=== PATIENT | female | born 1995 | race Caucasian/White ===

== ENCOUNTER 2024-06-07 13:20 | Emergency (ER) | payer MEDICAID, SELFPAY ==
[2024-06-07 13:21] VITALS: BMI 30.9
[2024-06-07 15:13] VITALS: BP 109/76; PULSE 85; RESP 18; TEMP 36.6; O2SAT 98
--- NOTE | 2024-06-07 15:55 | EDNOTE_ITS ---
<Statement entered by Dayanna Domínguez MD - 06/08/24 06:45> As co-signing physician, I was present and available for consult prn. I concur with the plan and care as documented by the midlevel provider. Lower Extremity Injury RME/HPI General Chief Complaint: Ankle/Foot Injury Stated Complaint: INFECTION RIGHT GREAT TOE x 7 DAYS Time Seen by Provider: 06/07/24 14:28 Arrival date/time: 06/07/24 13:20 RME / HPI RME / HPI Narrative: 28-year-old patient presents emergency department with complaint of infection to her right big toe for the past 1 week. Patient states she has been using Epsom salt and warm water without any significant relief. She rates her pain currently as a 10 out of 10. Pain is worse with palpation of the right toe. Related Data Previous Rx's ?Medication ?Instructions ?Recorded cephalexin 500 mg capsule 500 mg PO QID 10 days #40 caps 06/07/24 Allergies Allergy/AdvReac Type Severity Reaction Status Date / Time No Known Allergies Allergy Verified 06/07/24 13:22 Review of Systems Review of Systems Systems Reviewed: All systems reviewed, normal except as documented Constitutional Constitutional: Reports system reviewed and no additional complaints, except as documented ENT Ears, Nose, Mouth, and Throat: Reports system reviewed and no additional complaints, except as documented Cardiovascular Cardiovascular: Reports system reviewed and no additional complaints, except as documented Respiratory Respiratory: Reports system reviewed and no additional complaints, except as documented Musculoskeletal Musculoskeletal: Reports system reviewed and no additional complaints, except as documented Neurologic Neurologic: Reports system reviewed and no additional complaints, except as documented Psychiatric Psychiatric: Reports system reviewed and no additional complaints, except as documented ED Exam General General appearance: Present alert and in no apparent distress Head Head exam: Present atraumatic and normocephalic Chest Chest inspection: Present normal inspection and symmetric chest wall rise Respiratory Respiratory exam: Present normal lung sounds bilaterally Cardiovascular Cardiovascular exam: Present regular rate and normal rhythm Expanded Lower Extremity Exam Foot/toe exam: Present normal inspection, tenderness, swelling (right great toe) and erythema Neurological Exam Neurological exam: Present alert and oriented X3 Course Quality Measures none Orders Category Date Time Status HYDROcodone*/APAP 5/325 [[place] 5/325] Med 06/07/24 15:54 Once 1 tab PO X1 ONE Vital Signs Vital signs: Vital Signs Temperature 97.9 F 06/07/24 15:13 Pulse Rate 85 06/07/24 15:13 Respiratory Rate 18 06/07/24 15:13 Blood Pressure 109/76 06/07/24 15:13 Pulse Oximetry (%) 98 06/07/24 15:13 Oxygen Delivery Method Room Air 06/07/24 15:13 Procedures -ED Abscess I/D Site: other (right great toe) Side (if applicable): right Technique: needle aspiration Amount of fluid expressed (mL): 1 Extremity Injury, Lower MDM Narrative MDM Narrative:: Signs and symptoms consistent with paronychia of the right great toe patient will be DC'd home with oral antibiotics patient encouraged to continue soaking foot in Epsom salt and warm water. Patient data External records reviewed:: None Clinical information provided by:: patient Social determinants that could affect healthcare access:: none Patient has the following chronic illnesses:: na How is presenting disease/condition affected by chronic disease/condition?: no chronic disease Evaluation data The following diagnostics were reviewed and interpreted by me:: other (specify) (na) Lab and/or radiology exams considered but not ordered:: na Interpretation Summary: na Medications / Prescriptions Medications or Prescriptions considered but not ordered:: both considered and ordered Medication administrations:: per above Consultations Consultation(s) initiated? (list below): No Diagnosis Extremity Injury, Lower Differential Diagnosis: ankle sprain and strain, acute internal derangement of knee, fracture of femur, fracture of toe and other Most likely diagnosis given after review of the tests above:: paronychia Admission Indicated Admission indicated?: not indicated Admission Request Was there a request for admission?: No Disposition Plan Disposition Plan: Discharge Discharge Attestation Discharge Attestation: The patient and all family members were given an opportunity to ask questions and understood the discharge instructions. Discharge instructions specifically effects, indications for sooner follow up or return to the emergency department, and the expected course of current diagnosis. Patient condition: Stable Discharge Plan Plan Patient Disposition: HOME (Self Care) Patient condition on transfer: Stable Prescriptions/Referrals Prescriptions/Med Rec: New cephalexin 500 mg capsule 500 mg PO QID 10 Days Qty: 40 0RF Problem List Clinical Impression: Paronychia due to ingrown nail Patient/Caregiver Discharge Instructions Print Language: Mongolian Stand Alone Forms: Diane Award Info., Patient Portal Info Letter
[2024-06-07] MEDS: HYDROcodone/APAP 5/325 TABLET 1 TAB PO (16:17)
== END 2024-06-07 16:34 | disposition home or self-care (01) ==
LOC: SERX 16:29
PROVIDERS: Emergency Provider Emergency Medicine
DX: L60.0 Ingrowing nail (principal); L03.031 Cellulitis of right toe
CPT/HCPCS: 99283; A9270